=== PATIENT | male | born 1980 | race Caucasian/White ===

== ENCOUNTER 2025-03-16 12:17 | Emergency (ER) | payer OTHER ==
[2025-03-16 12:52] LABS: #Basophils 0.1 thou/uL (0.0-0.2); #Eosinophils 0.0 thou/uL (0.0-0.7); #Lymphocytes 1.1 thou/uL (1.20-3.40); #Monocytes 0.5 thou/uL (0.11-0.59); #Neutrophils 7.0 thou/uL (1.40-6.50); %Basophils 0.7 % (0.0-1.0); %Eosinophils 0.1 % (0.0-10.0); %Lymphocytes 12.1 % (21.0-51.0); %Monocytes 6.2 % (0.0-10.0); %Neutrophils 80.8 % (42.0-75.0); Hematocrit 46.0 % (42.0-52.0); Hemoglobin 15.5 g/dL (14.0-18.0); Mean Corpuscular Hemoglobin 27.7 pg (27.0-31.0); Mean Corpuscular Volume 81.9 fl (78.0-98.0); Platelet Count 202 10x3/uL (130-400); Red Blood Cell (RBC) Count 5.62 mill/uL (4.70-6.10); White Blood Cell (WBC) Count 8.7 10x3/uL (4.8-10.8)
[2025-03-16 13:09] LABS: Bicarbonate (HCO3v) 24.8 mmol/L (22.0-28.0); CO2 Tension (PvCO2) 37.5 mmHg (42.0-51.0); Calcium, Ionized 1.14 mmol/L (1.15-1.33); Chloride 106 mmol/L (98-107); Hemoglobin - Calc 15.5 g/dL (14.0-18.0); Potassium 3.5 mmol/L (3.5-5.1); Sodium 139 mmol/L (138-145); T. Carbon Dioxide 25.9 mmol/L (22.0-28.0); vO2 Saturation-calc 88.4 % (60.0-85.0)
[2025-03-16 13:10] LABS: ALT (SGPT) 19 U/L (Less than 45); AST (SGOT) 28 U/L (11-34); Albumin 4.0 g/dL (3.1-4.5); Alkaline Phosphatase 57 U/L (40-110); Anion Gap 18 mmol/L (10-20); BUN (Urea Nitrogen) 18 mg/dL (8.9-20.6); Bilirubin, Total 0.4 mg/dL (0.3-1.2); Calc. Creatinine Clearance 0 mL/min (70-130); Calcium 8.8 mg/dL (7.8-10.44); Carbon Dioxide 23 mmol/L (22-29); Chloride 103 mmol/L (98-107); Globulin 3.7 g/dL (2.4-3.5); Glucose 220 mg/dL (70-105); Lipase 34 U/L (8-78); Potassium 3.7 mmol/L (3.5-5.1); Sodium 140 mmol/L (136-145)
[2025-03-16 14:03] LABS: Glucose, Urine (Dipstick) 100 mg/dL (Negative); Leukocyte Negative (Negative); Protein, Urine (Dipstick) Negative (Neg-Trace); Specific Gravity, Urine 1.015 (1.005-1.030)
[2025-03-16 14:08] LABS: CAUTI Indications for Culture Fever or rigors; WBC/HPF 0-3 HPF (0-3)
[2025-03-16 14:09] LABS: Urine Culture Reflex No No
== END 2025-03-16 15:30 ==
LOC: NAV ERS 12:17
DX: A08.4 Viral intestinal infection, unspecified (principal); E87.20 Acidosis, unspecified; I10 Essential (primary) hypertension; E78.5 Hyperlipidemia, unspecified; E11.9 Type 2 diabetes mellitus without complications; Z79.4 Long term (current) use of insulin; Z79.82 Long term (current) use of aspirin; Z79.84 Long term (current) use of oral hypoglycemic drugs; Z55.6 Problems related to health literacy; Z79.899 Other long term (current) drug therapy
CPT/HCPCS: 36416; 71045; 80053; 81001; 82010; 82330; 82803; 83605; 83690; 85025; 87428; 96360; 96361; J7120